=== PATIENT | male | born 1965 | race Caucasian/White ===

== ENCOUNTER 2024-11-18 11:20 | Emergency (ER) | payer MEDICAID ==
[~2024-11-18] VITALS: Ht 172.7 cm; Wt 113.9 kg
[2024-11-18 12:08] LABS: BASOPHILS % (AUTO) 1.1 % (0.0-2.0); EOSINOPHILS # (AUTO) 0.3 K/uL (0.0-0.7); HEMATOCRIT 34 % (39-51); HEMOGLOBIN 11.5 g/dL (13.5-17.5); LYMPHOCYTES # (AUTO) 0.4 K/uL (0.8-4.8); LYMPHOCYTES % (AUTO) 11.7 % (20.0-44.0); MEAN CORPUSCULAR HEMOGLOBIN 32 PG (26.0-33.0); MEAN CORPUSCULAR HGB CONC 34 g/dl (31.0-36.0); MEAN CORPUSCULAR VOLUME 95 fL (80-96); MONOCYTES # (AUTO) 0.5 K/uL (0.1-1.30); MONOCYTES % (AUTO) 13.2 % (2.0-12.0); NEUTROPHILS # (AUTO) 2.4 K/uL (1.8-8.9); PLATELET COUNT (AUTO) 80 K/uL (150-450); RED BLOOD CELL COUNT(AUTO) 3.55 MIL/uL (4.5-6.0); RED CELL DISTRIBUTION WIDTH 18.8 % (11.5-15.0); WHITE BLOOD COUNT (AUTO) 3.6 K/uL (4.3-11.0)
[2024-11-18 12:09] LABS: CALCIUM, SERUM 8.7 mg/dL (8.5-10.1); POTASSIUM 3.2 mmol/L (3.5-5.1)
[2024-11-18 12:13] LABS: INR 1.65 (0.91-1.10); PARTIAL THROMBOPLASTIN TIME 35.3 SEC (24.3-34.3); PROTHROMBIN TIME 16.9 SECS (9.2-11.1)
[2024-11-18 13:00] LABS: EOSINOPHILS % (MANUAL) 8 % (0-4); LYMPHOCYTES % (MANUAL) 5 % (16-48); MONOCYTES % (MANUAL) 7 % (0-11.0); NEUTROPHILS % (MANUAL) 80 (42-76); PLATELET ESTIMATE DECREASED
[2024-11-18] MEDS ORDERED: ALBUMIN 25% 12.5 GM/50 ML BOTTLE IV ONE (14:00)
[2024-11-18] MEDS ORDERED: LIDOCAINE 1%-EPI 1:100,000 20 ML VIAL ONE (14:27)
[2024-11-18] MEDS: ALBUMIN 25% 25 GM in PREMIX 1 EA IV ONE (14:43)
[2024-11-18 16:08] VITALS: BP 132/82; TEMP 98.1; O2SAT 98
== END 2024-11-18 16:36 | disposition hospice, home (50) ==
LOC: ER 11:30
DX: R18.8 Other ascites (principal)
CPT/HCPCS: 49083; 99285; 96365; 85025; 80048; 36415; 85730; 85007; A4216; A6403; J3490; P9047

== ENCOUNTER 2024-12-05 10:06 | Inpatient (IN) | payer MEDICAID ==
[~2024-12-05] VITALS: Ht 175.3 cm; Wt 115.7 kg
[2024-12-05] MEDS ORDERED: HYDR-3980 PO (11:33)
[2024-12-05] MEDS ORDERED: LORA2ORA PO (11:33)
[2024-12-05] MEDS ORDERED: LACT20SO4 PO (11:33)
[2024-12-05] MEDS ORDERED: MELA5TAB PO (11:33)
[2024-12-05] MEDS ORDERED: NALO4SPR NS (11:33)
[2024-12-05] MEDS ORDERED: CARB30DR18 EACHEYE (11:33)
[2024-12-05] MEDS ORDERED: HYOS-27 PO (11:33)
[2024-12-05] MEDS ORDERED: MORP20SO PO (11:33)
[2024-12-05] MEDS ORDERED: HYDR25TA4 PO (11:33)
[2024-12-05] MEDS ORDERED: AMLO5TAB4 PO (11:33)
[2024-12-05] MEDS ORDERED: GABA100C PO (11:33)
[2024-12-05] MEDS ORDERED: FERR-68 PO (11:33)
[2024-12-05] MEDS ORDERED: METH-647 PO (11:33)
[2024-12-05] MEDS ORDERED: ACET-868 PO (11:33)
[2024-12-05] MEDS ORDERED: SPIR50TA5 PO (11:33)
[2024-12-05 11:34] LABS: BASOPHILS # (AUTO) 0.1 K/uL (0.0-0.2); BASOPHILS % (AUTO) 1.4 % (0.0-2.0); CALCIUM, SERUM 8.5 mg/dL (8.5-10.1); CREATININE 1.1 mg/dL (0.6-1.3); EOSINOPHILS # (AUTO) 0.3 K/uL (0.0-0.7); EOSINOPHILS % (AUTO) 4.1 % (0.0-6.0); HEMATOCRIT 36 % (39-51); HEMOGLOBIN 12.5 g/dL (13.5-17.5); LYMPHOCYTES # (AUTO) 0.4 K/uL (0.8-4.8); LYMPHOCYTES % (AUTO) 5.1 % (20.0-44.0); MEAN CORPUSCULAR HEMOGLOBIN 32 PG (26.0-33.0); MEAN CORPUSCULAR HGB CONC 34 g/dl (31.0-36.0); MEAN CORPUSCULAR VOLUME 94 fL (80-96); MONOCYTES % (AUTO) 11.8 % (2.0-12.0); NEUTROPHILS # (AUTO) 6.5 K/uL (1.8-8.9); NEUTROPHILS % (AUTO) 77.6 % (43.0-81.0); PLATELET COUNT (AUTO) 95 K/uL (150-450); POTASSIUM 4.2 mmol/L (3.5-5.1); RED BLOOD CELL COUNT(AUTO) 3.87 MIL/uL (4.5-6.0); RED CELL DISTRIBUTION WIDTH 16.7 % (11.5-15.0); WHITE BLOOD COUNT (AUTO) 8.3 K/uL (4.3-11.0)
[2024-12-05 11:46] LABS: INR 1.69 (0.91-1.10); PROTHROMBIN TIME 17.3 SECS (9.2-11.1)
[2024-12-05 11:51] LABS: BILIRUBIN,DIRECT 2.8 mg/dL (0.0-0.2); BILIRUBIN,TOTAL 4.8 mg/dL (0.2-1.0); TOTAL PROTEIN, SERUM 7.6 g/dL (6.4-8.2)
[2024-12-05 12:28] LABS: EOSINOPHILS % (MANUAL) 5 % (0-4); LYMPHOCYTES % (MANUAL) 6 % (16-48); MONOCYTES % (MANUAL) 7 % (0-11.0); NEUTROPHILS % (MANUAL) 82 (42-76); PLATELET ESTIMATE DECREASED
[2024-12-05] MEDS ORDERED: ONDANSETRON HCL/PF 4 MG/2 ML VIAL ONE (15:03)
[2024-12-05] MEDS ORDERED: MORPHINE SULFATE INJ 4 MG/ML DISP.SYRIN ONE (15:03)
[2024-12-05] MEDS: ONDANSETRON HCL/PF 4 MG/2 ML VIAL IV ONE (15:07)
[2024-12-05] MEDS: MORPHINE SULFATE INJ 2 MG/ML DISP.SYRIN IV ONE (15:08)
[2024-12-05] MEDS ORDERED: Z GUARD REMEDY 4 OZ OINT TP PRN (15:30)
[2024-12-05] MEDS ORDERED: MAG HYDROX/AL HYDROX/SIMETH 30 ML UDC PO PRN (15:30)
[2024-12-05] MEDS ORDERED: HYOSCYAMINE SULFATE 0.125 MG TAB.SUBL SL PRN (18:30)
[2024-12-05] MEDS: MORPHINE SULFATE INJ 2 MG/ML DISP.SYRIN IV PRN (20:01)
[2024-12-05] MEDS: METHOCARBAMOL (500MG) 500 MG TABLET PO SCH (20:49)
[2024-12-05] MEDS: FERROUS SULFATE (325 MG) 325 MG/TAB TABLET PO SCH (20:49)
[2024-12-05] MEDS: SPIRONOLACTONE 25 MG TABLET PO SCH (20:49)
[2024-12-05] MEDS: GABAPENTIN 100 MG CAPSULE PO SCH (20:51)
[2024-12-05] MEDS: LACTULOSE 10 G/15 ML UDC (PYXIS) PO SCH (20:51)
[2024-12-05] MEDS ORDERED: Medication Not On Formulary EA (Melatonin 5 MG) PO SCH (22:00)
[2024-12-05] MEDS: LORAZEPAM 0.5 MG TABLET PO SCH (23:13)
[2024-12-06 07:24] LABS: BASOPHILS % (AUTO) 0.6 % (0.0-2.0); EOSINOPHILS # (AUTO) 0.2 K/uL (0.0-0.7); EOSINOPHILS % (AUTO) 3.7 % (0.0-6.0); HEMATOCRIT 30 % (39-51); HEMOGLOBIN 10.4 g/dL (13.5-17.5); LYMPHOCYTES # (AUTO) 0.3 K/uL (0.8-4.8); LYMPHOCYTES % (AUTO) 5.4 % (20.0-44.0); MEAN CORPUSCULAR HEMOGLOBIN 33 PG (26.0-33.0); MEAN CORPUSCULAR HGB CONC 35 g/dl (31.0-36.0); MEAN CORPUSCULAR VOLUME 94 fL (80-96); MONOCYTES # (AUTO) 0.7 K/uL (0.1-1.30); MONOCYTES % (AUTO) 13.4 % (2.0-12.0); NEUTROPHILS % (AUTO) 76.9 % (43.0-81.0); PLATELET COUNT (AUTO) 87 K/uL (150-450); RED BLOOD CELL COUNT(AUTO) 3.18 MIL/uL (4.5-6.0); RED CELL DISTRIBUTION WIDTH 16.6 % (11.5-15.0); WHITE BLOOD COUNT (AUTO) 5.2 K/uL (4.3-11.0)
[2024-12-06 07:50] LABS: CALCIUM, SERUM 7.7 mg/dL (8.5-10.1); MAGNESIUM 2.3 mg/dL (1.8-2.4); PHOSPHORUS 3.5 mg/dL (2.5-4.9); POTASSIUM 3.3 mmol/L (3.5-5.1)
[2024-12-06 07:59] LABS: APPEARANCE,URINE CLEAR (CLEAR); BILIRUBIN,URINE 1+ (NEGATIVE); BLOOD, URINE NEGATIVE Ery/uL (NEGATIVE); COLOR,URINE DARK YELLOW (YELLOW); KETONES,URINE NEGATIVE (NEGATIVE); LEUKOCYTE ESTERASE ,URINE NEGATIVE (NEGATIVE); NITRITE, URINE NEGATIVE (NEGATIVE); PROTEIN,URINE NEGATIVE (NEGATIVE); UGLUCOSE NEGATIVE (NEGATIVE)
[2024-12-06 08:17] LABS: ADD URINE CULTURE NO; BACTERIA,URINE Rare /HPF (None Seen); RBC,URINE 0-2 /HPF (0-2); SQUAMOUS EPITHELIAL CELL,UR 0-2 /HPF (None Seen); WBC,URINE 0-2 /HPF (0-3)
[2024-12-06 08:18] LABS: FINE GRANULAR CASTS,URINE Rare /LPF (None Seen)
[2024-12-06 08:27] VITALS: BP 112/62; TEMP 99; O2SAT 99
[2024-12-06] MEDS: AMLODIPINE BESYLATE 5 MG TABLET PO SCH (09:23)
[2024-12-06 11:01] LABS: EOSINOPHILS % (MANUAL) 5 % (0-4); LYMPHOCYTES % (MANUAL) 6 % (16-48); MONOCYTES % (MANUAL) 12 % (0-11.0); NEUTROPHILS % (MANUAL) 77 (42-76)
[2024-12-06] MEDS: POTASSIUM CHLORIDE 20 MEQ TAB.PRT.SR PO ONE (12:31)
[2024-12-06 12:47] LABS: PLATELET ESTIMATE DECREASED
[2024-12-06 16:00] VITALS: BP 112/40; TEMP 98.2; O2SAT 92
[2024-12-06] MEDS: HYDROCODONE/APAP 10/325MG TABLET PO PRN (18:49)
[2024-12-06 20:00] VITALS: BP 138/80; TEMP 97.9; O2SAT 97
[2024-12-07 06:16] LABS: MAGNESIUM 2.4 mg/dL (1.8-2.4); PHOSPHORUS 3.4 mg/dL (2.5-4.9)
[2024-12-07 06:18] LABS: CALCIUM, SERUM 8.2 mg/dL (8.5-10.1); CREATININE 1.2 mg/dL (0.6-1.3); POTASSIUM 3.6 mmol/L (3.5-5.1)
[2024-12-07 06:41] LABS: THYROID STIMULATING HORMONE 3.57 uIU/mL (0.358-3.74); URIC ACID 4.6 mg/dL (2.6-7.2)
[2024-12-07 08:00] VITALS: BP 135/71; TEMP 98.2; O2SAT 99
[2024-12-07 16:00] VITALS: BP 149/79; TEMP 98.3; O2SAT 97
[2024-12-07] MEDS: ONDANSETRON HCL/PF 4 MG/2 ML VIAL IVP PRN (19:24)
[2024-12-07 20:00] VITALS: BP_SYST 110; BP_SYST 140; BP_DIAS 77; TEMP 98.1; O2SAT 97
[2024-12-08 06:38] LABS: CALCIUM, SERUM 7.7 mg/dL (8.5-10.1); CREATININE 1.2 mg/dL (0.6-1.3); POTASSIUM 3.7 mmol/L (3.5-5.1)
[2024-12-08 09:29] VITALS: BP 135/67; TEMP 98.2; O2SAT 96
[2024-12-08] MEDS ORDERED: ALBUMIN 25% 12.5 GM in PREMIX 1 EA IV SCH (11:30)
[2024-12-08 16:25] VITALS: BP 123/73; TEMP 97.9; O2SAT 100
[2024-12-08 21:39] VITALS: BP 149/92; TEMP 98; O2SAT 98
[2024-12-09 07:28] LABS: CREATININE 1.1 mg/dL (0.6-1.3); POTASSIUM 3.7 mmol/L (3.5-5.1)
[2024-12-09 08:00] VITALS: BP 126/85; TEMP 98.4; O2SAT 96
[2024-12-09 08:32] VITALS: BP 126/85; TEMP 98.4; O2SAT 96
[2024-12-09 16:00] VITALS: BP 137/76; TEMP 98.2; O2SAT 96
[2024-12-09 16:13] VITALS: BP 137/76; TEMP 98; O2SAT 96
== END 2024-12-09 18:00 | disposition hospice, home (50) | DRG 280 ==
LOC: ER 10:10 → TELE 18:05 → MED 20:00
PROVIDERS: ADMIT Internal Medicine; ATTEND Nurse Practitioner Acute Care
PROC: 0W9G3ZZ Drainage of Peritoneal Cavity, Percutaneous Approach (ICD-10-PCS; principal; 2024-12-09)
DX: K70.31 Alcoholic cirrhosis of liver with ascites (principal); K76.6 Portal hypertension; D69.6 Thrombocytopenia, unspecified; D63.8 Anemia in other chronic diseases classified elsewhere; E87.1 Hypo-osmolality and hyponatremia; K76.82 Hepatic encephalopathy; E87.70 Fluid overload, unspecified; E87.6 Hypokalemia; G62.9 Polyneuropathy, unspecified; Z85.05 Personal history of malignant neoplasm of liver; Z51.5 Encounter for palliative care; F10.21 Alcohol dependence, in remission
CPT/HCPCS: 36415; 49083; 71045-TC; 76705-TC; 80048-TC; 80076-TC; 81001; 82140-TC; 83690-TC; 83735-TC; 83935-TC; 84100-TC; 84300-TC; 84443-TC; 84550-TC; 85025-TC; 85610-TC; 87081-TC; 93970-TC; A4216; G0378; J2270; J2405; P9047